=== PATIENT | male | born 1960 | race Caucasian/White ===

== ENCOUNTER 2025-01-24 09:59 | Emergency (ER) | payer OTHER, SELFPAY ==
--- NOTE | ~2025-01-24 | CT_ITS ---
EXAMINATION: CT SOFT TISSUE NECK WITH CONTRAST CLINICAL INFORMATION: Inability to swallow solids. Rule out abscess. COMPARISON: None available. TECHNIQUE: Following the intravenous administration of 100 mL of Omnipaque 350 intravenous contrast, helical imaging was performed in the axial plane with generation of coronal and sagittal reformatted images. This CT examination was performed using dose optimization techniques as appropriate, variously including the following: *Automated exposure control *Adjustment of mA and/or kV according to patient size (this includes techniques or standardized protocols for targeted exams where dose is matched to indication/reason for exam; i.e. extremities or head) *Use of iterative reconstruction technique DLP: 330 mGy/cm. FINDINGS: There is a heterogeneous lobulated mass centrally in the suprahyoid space above the epiglottis and involves most of the base of the tongue slightly more prominent towards left of midline. There is central necrosis within the lesion. It measures 4.5 cm in AP, 3.7 cm in craniocaudad and 3.8 cm wide on sagittal image 47/5 and axial image 70/2. A metastatic lobulated lymphadenopathy is seen, right neck level 3 space lateral to the carotid artery and jugular vein. There are small punctate calcifications within the lesion more along the lateral aspect of the lymph node. Additional subtle small lymph nodes are seen in bilateral submandibular and left carotid space. The second largest lymph node has posterior left carotid space and measures 1.2 x 8.1 cm on axial slice 89/2. Partially visualized intracranial brain parenchyma is unremarkable with no enhancing mass seen. The lateral ventricles are symmetrical but enlarged. No calvarial abnormality is seen. The paranasal sinuses and mastoid air cells are well-aerated moderate. Moderate deviation of left nasal septum is seen. Bilateral optic globes, optic nerves and the periorbital soft tissues are normal. Intracranial basilar artery and bilateral internal carotid arteries are widely patent. Bilateral parotid and submandibular glands are symmetric and normal. There is mild oropharyngeal airway narrowing secondary to projection of this tumor within the pharynx. The prevertebral space is normal. Visualized larynx, tracheal tracheal airway and thyroid lobes are normal except for a small lesion along the right posterior tracheal wall on axial image 112/2. The lung apices are clear except for emphysematous changes. CT/CT soft tissue neck w IV con IMPRESSION: Large primary heterogenous lobulated primary lesion at the base of the tongue with central necrosis extending across the midline more so on the left than right. There is oropharyngeal airway narrowing. There are metastatic lymph nodes in the right and the left neck with largest lymph node in the right neck level 3 space. It is easily amenable to ultrasound-guided biopsy. Soft tissue lesion in the right trachea on axial image 112/2. Recommend bronchoscopy Electronically signed by: Wiliam Lomas MD 01/24/2025 11:29 AM EDT RP
[2025-01-24 10:06] VITALS: BP 152/77; PULSE 86; RESP 18; TEMP 36.9; O2SAT 99; BMI 15.9
--- NOTE | 2025-01-24 10:09 | ED_ITS ---
HPI - General Adult General Chief complaint: General Medical Stated complaint: FB in Throat Time Seen by Provider: 01/24/25 10:09 Source: patient Mode of arrival: ambulatory Limitations: no limitations History of Present Illness ED Provider: Lauren Apodaca PA-C HPI narrative: Patient is a 64 year old assigned male at with a history of tobacco use presenting to the emergency department today with 2 weeks of inability to swallow solids. Patient states that he was seen at an urgent care and treated for thrush but he continues to have issues swallowing solids and has been drinking protein shakes. Patient states that he was told by the urgent care he could have something in his throat so he should come to the ER. Patient denies any night sweats or fevers. Patient states that he is losing weight cause he cannot tolerate solids. Patient denies any other complaints at this time. Related Data Allergies Allergy/AdvReac Type Severity Reaction Status Date / Time ibuprofen (From Motrin) Allergy Unknown Verified 01/24/25 10:09 Review of Systems 2 Constitutional: Constitutional: Reports as per HPI Eyes: Eyes: Reports as per HPI ENT: Reports as per HPI Cardiovascular: Cardiovascular: Reports as per HPI Respiratory: Respiratory: Reports as per HPI Gastrointestinal: Gastrointestinal: Reports as per HPI Genitourinary: Genitourinary: Reports as per HPI Musculoskeletal: Musculoskeletal: Reports as per HPI Integumentary/Breasts: Skin/Breast: Reports as per HPI Neurologic: Reports as per HPI Psychiatric: Psychiatric: Reports as per HPI Endocrine: Endocrine: Reports as per HPI Hematologic/Lymphatic: Hematologic/Lymphatic: Reports as per HPI Allergic/Immunologic: Allergic/Immunologic: Reports as per HPI [facility] Past Medical History Attestation statement: The following information was validated with the patient. Source: old records reviewed and nursing notes reviewed Social History Social History Advance Directives: No Advance Directives Information Provided: No Physical Exam ED Vital Signs: Vital Signs - 24 hr 01/24/25 10:06 Temperature 98.5 F Pulse Rate 86 Respiratory Rate 18 Blood Pressure 152/77 H Pulse Oximetry 99 Oxygen Delivery Method Room Air BMI result Body Mass Index 15.9 Const General: cooperative, no acute distress, alert and awake Nutritional Appearance: well nourished Orientation/consciousness: patient oriented x3 HENMT Head: Yes normal to inspection and Yes atraumatic Ears: hearing grossly normal bilaterally and external ears normal General nose exam: Normal external nose present, no nasal discharge noted and no epistaxis Face and sinus: Yes normal facial exam, No abrasion and No laceration Mouth: Normal oral and palatal mucosa present, no drooling and muffled voice Teeth and gingiva: poor dentition Eyes General: appearance normal, both eyes and all related structures Periorbital: periorbital findings normal Eyelids: Yes eyelids normal Conjunctivae: conjunctivae normal Pupils: Equal, round and reactive pupils present EOM: EOMs intact bilaterally Neck Neck: Yes normal visual inspection and Yes full ROM Resp Effort & Inspection: normal respiratory effort and able to speak in complete sentences Neuro General: patient oriented x3, moves all extremities and CN's II-XI intact bilaterally Cranial nerves: Yes Equal, round and reactive pupils present Cognition (Neuro): normal cognition Extrem General: Yes normal to inspection, Yes full ROM and Yes capillary refill normal Psych Appearance: grossly normal Mental Status: mental status grossly normal Affect: normal affect Attitude: cooperative Thought process: Normal thought process present Thought content: Normal thought content present Insight: Good insight present (Psych) Medications Administered Discontinued Medications Generic Name Dose Route Start Last Admin Trade Name Freq PRN Reason Stop Dose Admin Iohexol 100 ml 01/24/25 11:02 01/24/25 11:02 Iohexol 350 Mg/Ml 100 Ml Infus..Btl IV 01/24/25 11:03 80 ml ONCE ONE Administration Medical Decision Making Medical Decision Making [facility] Narrative: Patient is a 64 year old assigned male at with a history of tobacco use presenting to the emergency department today with 2 weeks of inability to swallow solids. Patient's physical exam was as noted in the physical exam portion of this note. Patient had poor dentition with several missing or blackened teeth. Patient's voice was somewhat muffled. Patient's blood work showed a WBC of 11.6 and CRP of 1.21. Patient's CT soft tissue neck showed a large primary heterogenous lobulated primary lesion at the base of the tongue with central necrosis extending across the midline more so on the left than right with oropharyngeal narrowing and metastatic lymph nodes in the right and left neck with the largest lymph node in the right neck level 3 space and a soft tissue lesion in the right trachea. I explained my physical exam findings as well as all test results to the patient. I answered all questions asked by the patient. Given patient is unable to tolerate solids and has a new - somewhat extensive cancer, the patient should be admitted to the hospital for possible G tube placement and further evaluation / intervention. I confirmed with our hospitalist team that they would not admit the patient here given our lack of ENT coverage. I called and spoke to [facility] who stated they were closed to transfers due to capacity. I called and spoke to Dr. Swenson, an ENT specialist at [facility], who recommended transfer to their facility for G-tube placement and possible surgical intervention + biopsy. I spoke to Dr. Duffy, a hospitalist at [facility] who agreed to transfer of this patient. Patient verbalized understanding and agreement with transfer to [facility]. Differential Diagnosis Differential Diagnoses: The differential diagnosis associated with the presentation includes Tongue mass Esophageal mass Esophageal stricture Admission/Observation Consideration of admission/observation: Escalation of care including admission/observation considered Patient transferred to [facility] as noted in the MDM Rationale portion of this note. Consult Healthcare Provider Management of the patient was discussed with: Hospitalist (declined admission as noted in the MDM Rationale portion of this note. ) and [employer] (spoke with [facility] hospitalist and ENT teams as noted in the MDM Rationale portion of this note. ) Lab Data [facility] Lab Attestation statement: I reviewed the patient's lab results. My interpretation of these results are in the MDM Rationale portion of this note. 01/24/25 10:22 01/24/25 10:22 Labs: Lab Results 01/24/25 01/24/25 Range/Units 10:20 10:22 WBC 11.6 H (4.8-10.8) X10*3/uL RBC 4.22 L (4.60-5.80) X10*6/uL Hgb 14.4 (14.0-18.0) g/dl Hct 42.4 (42.0-52.0) % MCV 100.5 H (80.0-98.0) fL MCH 34.1 H (27.0-33.0) pg MCHC 34.0 (31.0-36.0) g/dl RDW 12.0 (11.0-16.0) % Plt Count 303 (160-400) X10*3/uL MPV 8.5 L (9.4-12.4) fL Immature Gran % (Auto) 0.6 H (0.0-0.4) % Neut % (Auto) 82.5 H (45-73) % Lymph % (Auto) 7.0 L (20-40) % Bates % (Auto) 9.4 (2-11) % Eos % (Auto) 0.1 (0-4) % Baso % (Auto) 0.4 (0-2) % Lymph # (Auto) 0.8 L (1.2-4.9) X10*3/uL Bates # (Auto) 1.1 (0.1-1.2) X10*3/uL Eos # (Auto) 0.0 (0.0-0.4) X10*3/uL Baso # (Auto) 0.1 (0.0-0.2) X10*3/uL Abs Immat Gran (auto) 0.07 H (0.00-0.03) X10*3/uL Absolute Neuts (auto) 9.6 H (2.0-8.3) x10*3/uL Absolute Nucleated RBC 0.000 (0.0-0.012) X10*3/uL Nucleated RBC % (auto) 0.0 (0.0-0.2) /100WBC ESR 10 (0-15) MM/HR Sodium 138 (135-145) mmol/L Potassium 3.8 (3.3-5.1) mmol/L Chloride 100 (96-108) mmol/L Carbon Dioxide 28 (22-29) mmol/L Anion Gap 14 (12-20) BUN 13 (9-16) mg/dL Creatinine 0.59 (0.5-1.4) mg/dL Estim Creat Clear Calc 73.9 Estimated GFR > 60 Random Glucose 104 (60-115) mg/dL Calcium 9.5 (8.4-10.2) mg/dL Total Bilirubin 0.4 (0.0-1.0) mg/dL AST 25 (5-37) U/L ALT 16 (0-40) U/L Alkaline Phosphatase 111 (39-117) U/L C-Reactive Protein 1.21 H (< or = 0.50) mg/dL Total Protein 6.8 (6.5-8.0) g/dL Albumin 4.1 (3.5-5.0) g/dL S. pyogenes GrpA NYASIA Negative (Negative) Independent Interpretation I performed an independent interpretation of an: CT Scan Interpretation: My interpretation is in agreement with the radiologist's impression of this imaging study. L Report Number: [id number]: Total DLP = 330.00 mGy-cm Reason for Exam: r/o abscess, inability to swallow solids EXAMINATION: CT SOFT TISSUE NECK WITH CONTRAST CLINICAL INFORMATION: Inability to swallow solids. Rule out abscess. COMPARISON: None available. TECHNIQUE: Following the intravenous administration of 100 mL of Omnipaque 350 intravenous contrast, helical imaging was performed in the axial plane with generation of coronal and sagittal reformatted images. This CT examination was performed using dose optimization techniques as appropriate, variously including the following: *Automated exposure control *Adjustment of mA and/or kV according to patient size (this includes techniques or standardized protocols for targeted exams where dose is matched to indication/reason for exam; i.e. extremities or head) *Use of iterative reconstruction technique DLP: 330 mGy/cm. FINDINGS: There is a heterogeneous lobulated mass centrally in the suprahyoid space above the epiglottis and involves most of the base of the tongue slightly more prominent towards left of midline. There is central necrosis within the lesion. It measures 4.5 cm in AP, 3.7 cm in craniocaudad and 3.8 cm wide on sagittal image 47/5 and axial image 70/2. A metastatic lobulated lymphadenopathy is seen, right neck level 3 space lateral to the carotid artery and jugular vein. There are small punctate calcifications within the lesion more along the lateral aspect of the lymph node. Additional subtle small lymph nodes are seen in bilateral submandibular and left carotid space. The second largest lymph node has posterior left carotid space and measures 1.2 x 8.1 cm on axial slice 89/2. Partially visualized intracranial brain parenchyma is unremarkable with no enhancing mass seen. The lateral ventricles are symmetrical but enlarged. No calvarial abnormality is seen. The paranasal sinuses and mastoid air cells are well-aerated moderate. Moderate deviation of left nasal septum is seen. Bilateral optic globes, optic nerves and the periorbital soft tissues are normal. Intracranial basilar artery and bilateral internal carotid arteries are widely patent. Bilateral parotid and submandibular glands are symmetric and normal. There is mild oropharyngeal airway narrowing secondary to projection of this tumor within the pharynx. The prevertebral space is normal. Visualized larynx, tracheal tracheal airway and thyroid lobes are normal except for a small lesion along the right posterior tracheal wall on axial image 112/2. The lung apices are clear except for emphysematous changes. CT/CT soft tissue neck w IV con IMPRESSION: Large primary heterogenous lobulated primary lesion at the base of the tongue with central necrosis extending across the midline more so on the left than right. There is oropharyngeal airway narrowing. There are metastatic lymph nodes in the right and the left neck with largest lymph node in the right neck level 3 space. It is easily amenable to ultrasound- guided biopsy. Soft tissue lesion in the right trachea on axial image 112/2. Recommend bronchoscopy Electronically signed by: Wiliam Lomas MD 01/24/2025 11:29 AM EDT RP Dictated By: Wiliam Lomas MD Signed By: Electronically signed by Wiliam Lomas MD 01/24/25 1129 Radiology Impression Discussion of test interpretation with radiology: I have reviewed the radiologist's reading. Critical Care Time Critical Care Time Critical Care Time: Yes Total Critical Care Time: 59 Attestation: I spent 59 minutes of Critical Care Time with this patient. This does not include time spent on separately reported billable procedures. 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 Duffy + Leela accepting for ENT intervention. Print Language: Vietnamese
[2025-01-24 10:30] LABS: MANUAL DIFF FLAG NO
[2025-01-24 10:31] LABS: Hematocrit 42.4 % (42.0-52.0); Hemoglobin 14.4 g/dl (14.0-18.0); Imm Gran Abs Auto 0.07 X10*3/uL (0.00-0.03); Imm Gran Pct Auto 0.6 % (0.0-0.4); Lymphocytes Absolute Auto 0.8 X10*3/uL (1.2-4.9); Mean Corpuscular HGB Conc 34.0 g/dl (31.0-36.0); Mean Corpuscular Hemoglobin 34.1 pg (27.0-33.0); Mean Corpuscular Volume 100.5 fL (80.0-98.0); NRBC Abs Auto 0.000 X10*3/uL (0.0-0.012); NRBC Pct Auto 0.0 /100WBC (0.0-0.2); Platelet Count 303 X10*3/uL (160-400); Red Blood Count 4.22 X10*6/uL (4.60-5.80); White Blood Count 11.6 X10*3/uL (4.8-10.8)
[2025-01-24 10:40] LABS: IDNOW Serial# 6674DD1D; Strep A Nucleic Acid Negative (Negative)
[2025-01-24 10:44] LABS: Alanine Aminotransferase 16 U/L (0-40); Albumin Level 4.1 g/dL (3.5-5.0); Alkaline Phosphatase 111 U/L (39-117); Anion Gap 14 (12-20); Aspartate Amino Transferase 25 U/L (5-37); Blood Urea Nitrogen 13 mg/dL (9-16); Calcium 9.5 mg/dL (8.4-10.2); Carbon Dioxide 28 mmol/L (22-29); Chloride 100 mmol/L (96-108); Creatinine Clr Calc Pharmacy 73.9; Estimated Glomerular Filt Rate > 60; Potassium 3.8 mmol/L (3.3-5.1); Sodium 138 mmol/L (135-145); Total Protein 6.8 g/dL (6.5-8.0)
[2025-01-24] MEDS: iohexoL 350 MG/ML 100 ML INFUS..BTL IV (11:02)
[2025-01-24 11:14] LABS: Erythrocyte Sedimentation Rate 10 MM/HR (0-15)
--- OUTSIDE RECORDS SUMMARY | 2025-01-24 11:41 | XMS_ITS | Patient Health Record ---
Author Organization [facility] Elaine maryanne Vern Address [address] [place] [address] Care Team Providers Care Mobile Designer Name Role Phone Antoni Braun MD Primary Care Provider Unavailab Basim Diaz Unavailable [phone] Reason For Referral No Information Medications Medication SIG (Take, Route, Frequency, Duration) Notes Start Date End Date Status rOPINIRole HCl 5 MG 1 tablet Orally Once a day Active oxyCODONE HCl 5 MG 1 capsule as needed Orally every 6 hrs 06/20/2017 Active amLODIPine Besylate 5 MG Oral; Duration: 30 Active Social History Tobacco Use: Social History Observation Description Date Details (start date - stop date) Current Smoker NA - NA Tobacco Use/Smoking Question Answer Notes Are you a: current smoker When did you start smoking? 2002 Alcohol Screen Question Answer Notes Did you have a drink containing alcohol in the p ast year? No Points 0 Interpretation Negative Tobacco use other than smoking: Question Answer Notes Are you an other tobacco user? No Problems Problem Type SNOMED Code ICD Code Onset Dates Problem Status W/U Status Risk Notes Problem Plantar wart (59178833) Plantar wart (B07.0) Active confirmed Problem Localized, primary osteoarthritis of the ankle and/or foot (488086804) Primary osteoarthrit is, right ankle and foot (M19.071) Active confirmed Plan Of Treatment No Information Insurance Providers Payer Name Payer Address Payer Phone Subscriber Number Group Number Insured Name Patient Relationship to Insured Coverage Start Date Coverage End Date [facility] [id number] [place] [phone] [id number] Cornelius Manjarrez Self - patient is the insured Medical (General) History Medical History History ICD Code transfusions mumps measles joint implants/screws chicken pox Broken bones Diverticulosis High blood pressure Surgical History Surgery Date(Month/Year) shoulder surgery 1977 Diverticulitis 2011 Hospitalization History Reason Date(Month/Year) diverticulitis X2 2011 reversal diverticulitis 2011
[2025-01-24 12:34] VITALS: BP 155/74; PULSE 73; RESP 16; TEMP 36.6; O2SAT 99
[2025-01-24 12:37] VITALS: BP 155/74; PULSE 73; RESP 16; TEMP 36.6; O2SAT 99
--- NOTE | 2025-01-30 07:03 | PC.NURSE ---
fluids infusing [facility] came patient getting transferred [facility] asked for me to stop fluids.
== END 2025-01-24 13:46 | disposition short-term general hospital (02) ==
PROVIDERS: Physician Assistant Medical; Emergency Provider Emergency Medicine; PCP Family Medicine
DX: C02.9 Malignant neoplasm of tongue, unspecified (principal); R13.10 Dysphagia, unspecified; M54.2 Cervicalgia; Z79.899 Other long term (current) drug therapy
CPT/HCPCS: 36415; 70491; 80053; 85025; 85652; 86140; 87651; 99285; Q9967

== ENCOUNTER → 2025-01-24 10:15 | Outpatient (BNV) | payer OTHER, SELFPAY | PROVIDERS: PCP Family Medicine; Visit Provider Radiology Diagnostic Radiology | DX: K14.8 Other diseases of tongue (principal); R22.0 Localized swelling, mass and lump, head | CPT/HCPCS: 70491 ==

== ENCOUNTER 2025-02-21 13:33 | Emergency (ER) | payer OTHER, SELFPAY ==
[2025-02-21 13:47] VITALS: BP 119/77; PULSE 85; RESP 16; TEMP 37; O2SAT 98; BMI 23.2
--- NOTE | 2025-02-21 13:48 | ED_ITS ---
HPI - General Adult General Chief complaint: General Medical Stated complaint: feeding tube fell out Time Seen by Provider: 02/21/25 16:03 Source: patient, family, RN notes reviewed and old records reviewed Mode of arrival: ambulatory Limitations: no limitations History of Present Illness ED Provider: Lesley HAIRSTON narrative: Patient is a 64 year old male with a past medical history throat cancer presenting today after his G-Tube fell out this morning. Pt states it was inserted at [facility] a couple weeks ago, but it has felt loose. This morning the pt woke up and it was out with the balloon deflated. Incision is closed with mild erythema surrounding. Pt denies any issues with the tube yesterday, tugging on the tube last night, or sleeping in a position to affect the tube. Pt denies fevers, itching, or abdominal pain. Endorses being hungry, however, can drink Ensures and was able to take his medications by mouth. Related Data Allergies Allergy/AdvReac Type Severity Reaction Status Date / Time ibuprofen (From Motrin) Allergy Unknown Verified 02/21/25 13:52 Review of Systems Constitutional: Constitutional: Reports as per HPI, Denies chills, Denies fatigue, Denies fever(s) and Denies headache(s) ENT: Denies headache(s) Cardiovascular: Cardiovascular: Denies chest pain and Denies dyspnea Respiratory: Respiratory: Denies cough and Denies dyspnea Gastrointestinal: Gastrointestinal: Denies abdominal pain, Denies constipation and Denies vomiting Genitourinary: Genitourinary: Denies difficulty urinating and Denies dysuria Neurologic: Denies headache(s) and Denies focal weakness Endocrine: Endocrine: Denies fatigue [facility] Social History Social History Advance Directives: No Advance Directives Information Provided: No Physical Exam ED Vital Signs: Vital Signs - 24 hr 02/21/25 13:47 Temperature 98.6 F Pulse Rate 85 Respiratory Rate 16 Blood Pressure 119/77 Pulse Oximetry 98 Oxygen Delivery Method Room Air BMI result Body Mass Index 23.2 Const General: healthy appearing, comfortable, no acute distress, alert and awake Orientation/consciousness: patient oriented x3 HENMT Head: Yes normocephalic and Yes atraumatic Eyes Eyelids: Yes eyelids normal Conjunctivae: conjunctivae normal Sclerae: sclerae normal Corneas: corneas normal Neck Neck: Yes full ROM Resp Effort & Inspection: normal respiratory effort, able to speak in complete sentences, no audible wheezes and not labored GI Other: The patient's orifice from previous due to placement has completely closed Inspection: No distended Palpation (GI): Soft to palpation, not firm, nontender, no guarding and not rigid Skin General skin exam: elasticity normal Rashes: rashes noted (surrounding the previous site of tube.) Neuro General: patient oriented x3 Cranial nerves: Yes Bilaterally intact EOM present Cognition (Neuro): normal cognition Extrem Other: Moving all extremities well without any obvious deformities Course Course Course Narrative: Rapid medical examination performed in triage by Lauren Apodaca PA-C: Patient is a 64 year old assigned male at presenting to the emergency department after his G tube fell out. Patient states his G tube fell out at some point and he woke up with it out. Patient states that it was in and open last night. Detailed physical exam and review of systems are deferred to the grill attendant. Patient placed back in the waiting room pending room availability. Medical Decision Making Medical Decision Making MDM Narrative: 64-year-old male presents for evaluation of G-tube dislodgement. This happened sometime last night into this morning. Unfortunately the orifice from the G- tube is completely closed off. I attempted to discuss with interventional radiology but unfortunately they are all home for the day. I spoke to her general surgeon, Dr. Yates and sent him a picture of the patient's G-tube location. He states that there are laparoscopic markers in the area and we unfortunately do not provide that procedure at this hospital. I was able to discuss with Dr. Solis, oncology fellow at [facility] who feels the patient can safely be discharged as he is able to tolerate ensure and his medications. She sent a message to the patient's radiation oncologist and medical oncologist to help facilitate getting a new G-tube placed. The patient has no complaints, vital signs are within normal limits. Differential Diagnosis Differential Diagnoses: The differential diagnosis associated with the prese ntation includes G-tube dislodgement Esophageal cancer Tongue cancer Weakness Discharge Plan Discharge Clinical Impression: Gastrostomy tube dysfunction Patient Disposition: Home, Self-Care Additional Instructions: I discussed with the oncology office, Dr. Solis she was able to send a message to both Dr. Chino and Dr Lara. You should receive a phone call on Monday with instructions on how to proceed about getting a new G-tube. In the meantime, return to the hospital if you develop severe weakness, nausea, vomiting or unable to tolerate any nutrition by mouth Print Language: [place]
--- OUTSIDE RECORDS SUMMARY | 2025-02-21 16:19 | XMS_ITS | Continuity of Care Document ---
Author Organization [place] - [facility], [facility] Address [address] [place] [address] Care Team Providers Care Agronomy Manager Name Role Phone STEPHEN SCHWARTZ Primary Care Provider Assessment Encounter Date Assessment Date Assessment LastModified by Organization Details LastModified Time 02/18/2025 02/18/2025 Follow up with referring provider.Informed him to follow his doctors recommendations for follow up hearing test but to also keep an eye on his hearing. If he notes any continuous tinnitus (ringing/buzzing in the ear) or a change in hearing he should call and get another hearing test as soon as possible. He received a copy of his hearing test today. [email or web address] Not available 02/18/2025 14:55:52 Plan of Treatment Reminders Order Date Submit Date Provider Last Modified By Organization Details Last Modified Time Details Appointments Urgent Visit New 15 2024 09:15A M JARRETT YIN MD Not available Not available Not available Lab None recorded . Referral None recorded . Procedures None recorded . Surgeries None recorded . Imaging None recorded . Medication Orders None recorded . Patient TargetsNo targets recorded. Patient InstructionsNo instructions recorded. Reason for Referral None Reported. Results Created Date Observation Date Name Description Value Unit Range Abnormal Flag Note LastModifiedBy Organization Detail LastModifiedTime 01/25/2001/24/2025 consu lts No observ ation record ed. [facility] U/S Dept [address] [facility] [place], [place], [address], 02/07/2025 17:05:00 01/25/2001/24/2025 consu lts No observ ation record ed. [facility]/S Dept [address] [place], [address], 02/07/2025 17:05:00 01/25/2001/24/2025 consu lts No observ ation record ed. [facility] [address] [place], [address], 02/07/2025 17:05:00 01/25/2001/24/2025 H&P No observ ation record ed. [facility] [address] [place], [address], 02/07/2025 11:29:49 01/27/2001/24/2025 consu lts No observ ation record ed. [facility] Dept [address] [place], [address], 02/07/2025 11:29:23 01/28/2001/24/2025 consu lts No observ ation record ed. [facility] [address] [place], [address], 02/07/2025 11:28:10 01/28/2001/24/2025 consu lts No observ ation record ed. [facility]/S Dept [address] [place], [address], 02/07/2025 11:27:19 01/29/2001/24/2025 consu lts No observ ation record ed. [facility]/S Dept [address] [place], [address], 02/07/2025 11:27:02 01/31/2001/24/2025 disch arge summa ry No observ ation record ed. [email or web address] [facility] U/S Dept [address] [place], [address], 02/11/2025 14:47:32 02/19/20 audio gram No observ ation record ed. BAR[facility] Not Available 2024 17:11:37 Result Notes None recorded. Problems Name Problem SNOMED Code Status Onset Date Resolution Date Notes Provider Name and Address Organization Details Recorded Time Sensorineural hearing loss of bilateral ears [id number] Active 2024 DENISE MONCADA, [facility] [address] [facility],[address], [address], [facility] 14:52:29 Problem Notes None recorded. Procedures Surgical History Date Name Laterality Status Provider Name and Address Organization Details Recorded Time 02/19/20 Comp Audio with Tymps & Reflexes - 95965 & 35064 completed DENISE MONCADA, [facility] [address] [facility],[address], [address], [facility] 02/18/2025 14:51:52 02/19/20 OAE distortion product, [facility] - [id number] completed DENISECHELLE MONCADA, [address], [address], [facility] 02/18/2025 14:42:22 Imaging Results None recorded. Procedure Notes None recorded. Medical Equipment None Reported. Medications Name Sig Start Date Stop Date Status Note LastModified by Organization Details LastModified Time nystatin 100,000 unit/mL oral suspension TAKE 4 ML (ORAL) 3 TIMES PER DAY FOR 7 DAYS active Not Available Not Available No t Available ropinirole 0.5 mg tablet TAKE 1 TABLET BY MOUTH 4 TIMES A DAY active Not Available Not Available No t Available albuterol sulfate HFA 90 mcg/actuatio n aerosol inhaler TAKE 2 PUFFS BY MOUTH EVERY 4 HOURS NEEDED FOR WHEEZE active Not Available Not Available No t Available amoxicillin 875 mg-potassium clavulanate 125 mg tablet TAKE 1 TABLET BY MOUTH EVERY 12 HOURS FOR 7 DAYS 02/07 completed Not Available Not Available Not Available oxycodone 5 mg tablet TAKE 1 TABLET BY MOUTH 4 TIMES DAILY FOR 21 DAYS NEEDED FOR PAIN active Not Available Not Available No t Available amlodipine 10 mg-benazepri l 20 mg capsule TAKE 1 CAPSULE BY MOUTH EVERY DAY active Not Available Not Available No t Available Vitals None Recorded Social History None recorded. Functional Status None recorded. Mental Status None recorded. Family History Nothing Reported. Medical History No medical history recorded. Past Encounters Encounter ID Performer Location Encounter Start Date Encounter Closed Date Diagnosis/Indication Diagnosis SNOMED-CT Code Diagnosis ICD10 Code Diagnosis IMO Codes Diagnosis Note [id number] DAYRON HERRERA [facility] [address] [place] [address] 02/18/2025 14:15:54 02/18/2025 15:00:38 Sensorineural hearing loss of bilateral ears 886352824 H90.3 [id number] Audiologic al evaluation results: Normal auditory thresholds with a mild starting at 4khz in the left and onyl at 8kHz in the right with excellent speech discrimina tion, AU. Tympanomet ry: Right Ear:Type A Left Ear:Type AIpsilater al Reflexes:R ight:Prese ntLeft:Pre sent DPOAE's 1.5kHz-12k Hz:Right:A bsent with the exception of present responses at 3k-6kHz.Le ft:Absent across frequencie s. Health Concerns Section Related Observation LastModified by Organization Detai ls LastModified Time None Recorded Concern Status LastModified by Organization Details LastModified Time None Recorded Payers Encounter Date Sequence Insurance Name Policy Number Policy Valladares Covered Member ID Valladares Member ID Guarantor Name 02/18/[address] [place] [address] [id number] Cornelius Manjarrez [id number] Cornelius Manjarrez Notes Date Note Type Note Provider Name and Address Organization Details Recorded Time 02/18/2025 text/html Audiological Evaluation HPIReported by PatientHearing LossFor hearing loss perceived, patient reportsnone (no loss of audibility). Baseline for ototoxic monitoring before treatment DAYRON HERRERA [address] [place] [address],[place] [address], [place], [address], [facility] - [facility] 02/18/2025 14:56:09
--- OUTSIDE RECORDS SUMMARY | 2025-02-21 16:19 | XMS_ITS | Clinical Summary ---
Author Organization [facility] Address [address] [place] [address] Phone Care Team Providers Care Clothes Presser Name Role Phone Cj Torres MD Primary Care Provider [phone] Allergies No known active allergies Medications albuterol HFA (PROVENTIL HFA;VENTOLIN HFA) 108 (90 Base) MCG/ACT inhaler Inhale 2 puffs by mouth every 4 (four) hours if needed for wheezing or shortness of breath. Active oxyCODONE (OXY-IR) 5 mg immediate release capsule Take 1 capsule (5 mg total) by mouth every 6 (six) hours if needed for severe pain. Max Daily Amount: 20 mg Active nystatin (MYCOSTATIN) 100,000 unit/mL suspension Swish and swallow 4 mL 4 (four) times a day. Active rOPINIRole (REQUIP) 0.5 mg tablet Take 1 tablet (0.5 mg total) by mouth 4 (four) times a day if needed (restless legs). Active amLODIPine-van zepril (LOTREL) 10-20 mg per capsuleIndicati ons:hypertensio n Take 1 capsule by mouth 1 (one) time each day. 01/31/20 25 Discontinu ed(Stop Taking at Discharge) Active Problems Problem Noted Date Diagnosed Date Mass of tongue 01/24/2025 Encounters Date Type Department Care Team Description 01/24/2025 2:16 PM EDT - 01/30/2025 11:33 AM EST Hospital Encounter [facility] [address] [place] [address] Hyacinth Duffy MD Japaridze, Anna, MD Rasul, Yar M, MD Mass of tongue (Primary Dx); Pain Discharge Disposition: Home-Health Care Svc from Last 3 Months Medical History Medical History Date Comments Arthritis Hypertension Chronic pain Restless legs Alcohol use Social History Tobacco Use Types Packs/Day Years Used Date Smoking Tobacco: Every Day Cigarettes Smokeless Tobacco: Current Tobacco Cessation:Ready to Q uit: Not Asked; Counseling Given: Not Answered Interpersonal Safety Answer Date Record ed Physical Abuse Unrecognized value 01/24/2025 Verbal Abuse Unrecognized value 01/24/2025 Sex and Gender Information Value Date Recorded Sex Assigned at Male 01/27/2025 10:09 AM EST Legal Sex Male 12:24 PM EDT Gender Identity Male 01/27/2025 10:09 AM EST Sexual Orientation Straight 01/27/2025 10 :09 AM EST Obstetrics History Last Filed Vital Signs Vital Sign Reading Time Taken Comments Blood Pressure 118/60 01/30/2025 7:59 AM EST Pulse 77 01/30/2025 7:59 AM EST Temperature 36.9 C (98.5 F) 01/30/2025 7:59 AM EST Respiratory Rate 17 01/30/2025 7:59 AM EST Oxygen Saturation 98% 01/30/2025 7:59 AM EST Inhaled Oxygen Concentration - - Weight 40.6 kg (89 lb 9.6 oz) 01/24/2025 5:00 PM EDT Height 160.2 cm (5' 3.07 ) 01/24/2025 2:57 PM ED T Body Mass Index 15.84 01/24/2025 2:57 PM EDT Plan of Treatment Health Maintenance Due Date Last Done Comments Colorectal Cancer Screening: Colonoscopy 1960 Pneumococcal Vaccine: 50+ Years (2 of 2 - PCV) 06/01/2004 06/02/2003 Depression Screening 03/27/2024 COVID-19 Vaccine ( season) 2024 12/08/2023, 12/20/2022, 07/15/2021, Additional history exists Influenza Vaccine (#1) 2024 , 12/20/2022, 01/07/2022, Additional history exists Cholesterol Screening (Lipid Panel) 01/24/2025 HIV Screening 01/24/2025 Hepatitis C Screening 01/24/2025 Social Influencers of Health Screening 01/24/2025 Hypertension/CHF/CAD Annual BMP Blood Test 01/30/2026 01/30/2025, 01/29/2025, 01/28/2025, Additional history exists DTaP,Tdap,and Td Vaccines (3 - Td or Tdap) 07/20/2031 07/19/2021, 06/01/2003 RSV Immunization Adult Patients (1 - 1-dose 75+ series) 2036 Zoster Vaccines Completed 12/20/2022, 01/17/2021 HIB Vaccines Aged Out No longer eligi ble based on patient's age to complete this topic HPV Vaccines Aged Out No longer eligi ble based on patient's age to complete this topic Hepatitis A Vaccines Aged Out No long er eligible based on patient's age to complete this topic Hepatitis B Vaccines Aged Out No long er eligible based on patient's age to complete this topic IPV Vaccines Aged Out No longer eligi ble based on patient's age to complete this topic MMR Vaccines Aged Out No longer eligi ble based on patient's age to complete this topic Meningococcal ACWY Vaccine Aged Out N o longer eligible based on patient's age to complete this topic Meningococcal B Vaccine Aged Out No l onger eligible based on patient's age to complete this topic RSV Immunization Patients Under 20 months Aged Out No longer eligible based on patient's age to complete this topic Varicella Vaccines Aged Out No longer eligible based on patient's age to complete this topic Procedures Procedure Name Priority Date/Time Associated Diagnosis Comments CBC WITH AUTO DIFFERENTIAL Timed 01/30/2025 6:25 AM EST BASIC METABOLIC PANEL Timed 01/30/2025 6:25 AM EST CBC AND DIFFERENTIAL Timed 01/30/2025 6:25 AM EST MAGNESIUM Routine 01/30/2025 6:25 AM EST CBC WITH AUTO DIFFERENTIAL Timed 01/29/2025 6:18 AM EST PHOSPHORUS Routine 01/29/2025 6:18 AM EST BASIC METABOLIC PANEL Timed 01/29/2025 6:18 AM EST CBC AND DIFFERENTIAL Timed 01/29/2025 6:18 AM EST MAGNESIUM Routine 01/29/2025 6:18 AM EST POCT GLUCOSE BLOOD Routine 01/28/2025 6: 37 AM EST CBC WITH AUTO DIFFERENTIAL Timed 01/28/2025 6:26 AM EST CBC AND DIFFERENTIAL Timed 01/28/2025 6:26 AM EST BASIC METABOLIC PANEL Routine 01/28/2025 6:25 AM EST MAGNESIUM Routine 01/28/2025 6:25 AM EST POCT GLUCOSE BLOOD Routine 01/27/2025 11 :57 PM EST POCT GLUCOSE BLOOD Routine 01/27/2025 6: 16 PM EST US BX NECK/THORAX SOFT TISSUE Routine 01/27/2025 4:45 PM EST TISSUE EXAM Routine 01/27/2025 4:20 PM EST Pain FINE NEEDLE ASPIRATION Routine 01/27/2025 4:17 PM EST Pain IR INSERT GASTRO TUBE PERC W FLUORO Routine 01/27/2025 3:57 PM EST POCT GLUCOSE BLOOD Routine 01/27/2025 11 :33 AM EST POCT GLUCOSE BLOOD Routine 01/27/2025 8: 07 AM EST PHOSPHORUS Routine 01/27/2025 6:49 AM EST MAGNESIUM Routine 01/27/2025 6:49 AM EST BASIC METABOLIC PANEL Routine 01/27/2025 6:49 AM EST LAVENDER - EDTA Routine 01/27/2025 6:47 AM EST EXTRA TUBES Routine 01/27/2025 6:47 AM EST POCT GLUCOSE BLOOD Routine 01/27/2025 5: 43 AM EST POCT GLUCOSE BLOOD Routine 01/26/2025 8: 19 PM EST CBC WITH AUTO DIFFERENTIAL Routine 01/26/2025 6:21 AM EST CBC AND DIFFERENTIAL Routine 01/26/2025 6:21 AM EST BASIC METABOLIC PANEL Routine 01/26/2025 6:21 AM EST POCT GLUCOSE BLOOD Routine 01/26/2025 2: 24 AM EST POCT GLUCOSE BLOOD Routine 01/25/2025 8: 14 PM EDT PROTHROMBIN TIME WITH INR Routine 01/25/2025 6:22 AM EDT COMPLETE BLOOD COUNT Routine 01/25/2025 6:22 AM EDT COMPREHENSIVE METABOLIC PANEL Routine 01/25/2025 6:22 AM EDT POCT GLUCOSE BLOOD Routine 01/25/2025 12 :[address] CHEST/ABDOMEN/PELVIS W CONTRAST STAT 01/24/2025 7:58 PM EDT MAGNESIUM Add-On 01/24/2025 5:21 PM EDT ETHANOL Add-On 01/24/2025 5:21 PM EDT COMPREHENSIVE METABOLIC PANEL STAT Add-on 01/24/2025 5:21 PM EDT SST - GOLD Routine 01/24/2025 5:21 PM EDT LT BLUE - NA CITRATE Routine 01/24/2025 5:21 PM EDT EXTRA TUBES Routine 01/24/2025 5:21 PM EDT CBC WITH AUTO DIFFERENTIAL STAT 01/24/2025 5:21 PM EDT CBC AND DIFFERENTIAL STAT 01/24/2025 5:21 PM EDT from Last 3 Months Results * (ABNORMAL) CBC auto differential (01/30/2025 6:25 AM EST) Only the most recent of5 resultswithin the time period is included. WBC 12.3(H) 4.8 - 10.8 K/mcL LAB HEMETOLOGY METHOD 01/30/2025 6:58 AM [facility] RBC 4.10(L) 4.50 - 5.50 M/mcL LAB HEMETOLOGY METHOD 01/30/2025 6:58 AM [facility] Hemoglobin 13.7 13.5 - 17.5 g/dL LAB HEMETOLOGY METHOD 01/30/2025 6:58 AM [facility] Hematocrit 41.3(L) 42.0 - 54.0 % LAB HEMETOLOGY METHOD 01/30/2025 6:58 AM [facility] MCV 101.2(H) 79.0 - 98.0 FL LAB HEMETOLOGY METHOD 01/30/2025 6:58 AM [facility] MCH 33.6(H) 27.0 - 32.0 pcg LAB HEMETOLOGY METHOD 01/30/2025 6:58 AM [facility] MCHC 33.2 32.0 - 37.0 g/dL LAB HEMETOLOGY METHOD 01/30/2025 6:58 AM [facility] RDW 12.5 11.0 - 15.0 % LAB HEMETOLOGY METHOD 01/30/2025 6:58 AM [facility] Platelets 390 130 - 400 K/mcL LAB HEMETOLOGY METHOD 01/30/2025 6:58 AM [facility] MPV 8.9 7.0 - 11.0 FL LAB HEMETOLOGY METHOD 01/30/2025 6:58 AM [facility] NRBC 0.0 <1.0 % LAB HEMETOLOGY METHOD 01/30/2025 6:58 AM [facility] NRBC Absolute 0.00 <0.10 K/mcL LAB HEMETOLOGY METHOD 01/30/2025 6:58 AM [facility] Neutrophils Relative 85.4 % LAB HEMETOLOGY METHOD 01/30/2025 6:58 AM [facility] Lymphocytes Relative 5.9 % LAB HEMETOLOGY METHOD 01/30/2025 6:58 AM [facility] Monocytes Relative 7.5 % LAB HEMETOLOGY METHOD 01/30/2025 6:58 AM [facility] Eosinophils Relative 0.4 % LAB HEMETOLOGY METHOD 01/30/2025 6:58 AM [facility] Basophils Relative 0.3 % LAB HEMETOLOGY METHOD 01/30/2025 6:58 AM [facility] Immature Granulocytes Relative 0.5 % LAB HEMETOLOGY METHOD 01/30/2025 6:58 AM [facility] Neutrophils Absolute 10.52(H) 1.50 - 7.00 K/mcL LAB HEMETOLOGY METHOD 01/30/2025 6:58 AM [facility] Lymphocytes Absolute 0.73(L) 1.00 - 5.00 K/mcL LAB HEMETOLOGY METHOD 01/30/2025 6:58 AM EST [facility] Monocytes Absolute 0.93 0.20 - 1.00 K/[facility] LAB HEMETOLOGY METHOD 01/30/2025 6:58 AM EST [facility] Eosinophils Absolute 0.05 0.00 - 0.50 K/[facility] LAB HEMETOLOGY METHOD 01/30/2025 6:58 AM EST [facility] Basophils Absolute 0.04 0.00 - 0.20 K/[facility] LAB HEMETOLOGY METHOD 01/30/2025 6:58 AM EST [facility] Immature Granulocytes Absolute 0.06(H) 0.00 - 0.03 K/[facility] LAB HEMETOLOGY METHOD 01/30/2025 6:58 AM [facility] Blood Venous blood specimen / Unknown Venipuncture / Unknown 01/30/2025 6:25 AM EST 01/30/2025 6:42 AM EST us Francisco Milan MD LAB BLOOD ORDERABLES Final Resul t Performing Organization Address City/[facility]/ZIP Co de Phone Number [facility] [address] [place] [address], * Magnesium (01/30/2025 6:25 AM EST) Only the most recent of5 resultswithin the time period is included. Magnesium 2.2 1.9 - 2.6 mg/dL LAB CHEMISTRY METHOD 01/30/2025 7:33 AM [facility] Blood Venous blood specimen / Unknown Venipuncture / Unknown 01/30/2025 6:25 AM EST 01/30/2025 6:42 AM EST us Mica Lyons MD LAB BLOOD ORDERABLES Final Res ult Performing Organization Address City/[facility]/ZIP Co de Phone Number [facility] [address] [place] [address], * (ABNORMAL) Basic metabolic panel (01/30/2025 6:25 AM EST) Only the most recent of5 resultswithin the time period is included. Sodium 135 133 - 145 mmol/L LAB CHEMISTRY METHOD 01/30/2025 7:33 AM [facility] Potassium 4.0 3.5 - 5.5 mmol/L LAB CHEMISTRY METHOD 01/30/2025 7:33 AM [facility] Chloride 98 96 - 110 mmol/L LAB CHEMISTRY METHOD 01/30/2025 7:33 AM [facility] CO2 33(H) 21 - 32 mmol/L LAB CHEMISTRY METHOD 01/30/2025 7:33 AM [facility] Anion Gap 4 3 - 11 LAB CHEMISTRY METHOD 01/30/2025 7:33 AM [facility] Glucose 179(H) 70 - 100 mg/dL LAB CHEMISTRY METHOD 01/30/2025 7:33 AM [facility] BUN 16 5 - 25 mg/dL LAB CHEMISTRY METHOD 01/30/2025 7:33 AM [facility] Creatinine 0.49(L) 0.70 - 1.30 mg/dL LAB CHEMISTRY METHOD 01/30/2025 7:33 AM [facility] eGFR 115 >=60 mL/min/1. 73m2 LAB CHEMISTRY METHOD 01/30/2025 7:33 AM [facility] Comment:Calculation based on the Chronic Kidney Disease Epidemiology Collaboration (CKD-EPI) equation refit without adjustment for race. BUN/Creatinine Ratio 32.7 LAB CHEMISTRY METHOD 01/30/2025 7:33 AM [facility] Calcium 9.5 8.5 - 10.5 mg/dL LAB CHEMISTRY METHOD 01/30/2025 7:33 AM [facility] Blood Venous blood specimen / Unknown Venipuncture / Unknown 01/30/2025 6:25 AM EST 01/30/2025 6:42 AM EST us Francisco Milan MD LAB BLOOD ORDERABLES Final Resul t Performing Organization Address City/[facility]/ZIP Co de Phone Number [facility] [address] [place] [address], [place] [phone] * Phosphorus (01/29/2025 6:18 AM EST) Only the most recent of2 resultswithin the time period is included. Phosphorus 3.1 2.5 - 4.5 mg/dL LAB CHEMISTRY METHOD 01/29/2025 7:39 AM EST [facility] Blood Venous blood specimen / Unknown Venipuncture / Unknown 01/29/2025 6:18 AM EST 01/29/2025 6:37 AM EST us Francisco Milan MD LAB BLOOD ORDERABLES Final Resul t Performing Organization Address [facility] Co de Phone Number [facility] [address] [place] [address], [place] [phone] * POCT Glucose, blood (01/28/2025 6:37 AM EST) Only the most recent of10 resultswithin the time period is included. Glucose POCT 100 70 - 100 mg/dL 01/28/2025 6:39 AM EST [facility] Blood Capillary blood specimen / Unknown 01/28/2025 6:37 AM EST 01/28/2025 6:40 AM EST us Francisco Milan MD LAB POINT OF CARE TE ST DOCKED DEVICE UNSOLICITED RESULTS Final Result Performing Organization Address [facility] Co de Phone Number [facility] [address] [place] [address], [place] [phone] * US Bx Neck/Thorax Soft Tissue (01/27/2025 4:45 PM EST) Anatomical Region Laterality Modality Neck, Chest Ultrasound 01/31/2025 10:1 5 AM EST Impressions 01/31/2025 10:58 AM EST Ultrasound-guided biopsy of right cervical lymphadenopathy. -------- FINAL REPORT -------- Dictated By: Ingrid Barrett Dictated Date: 01/31/2025 10:15 ET Assigned Physician: Ingrid Barrett Reviewed and Electronically Signed By: Ingrid Barrett Signed Date: 01/31/2025 10:58 ET Workstation ID: [id number] Transcribed By: Self Edit Transcribed Date: 01/31/2025 10:15 ET Narrative 01/31/2025 10:58 AM EST INDICATION: Cervical lymphadenopathy PROCEDURE: Ultrasound-guided biopsy of right cervical lymphadenopathy prior relevant studies: none MEDICATIONS: Local anesthesia: 1% buffered lidocaine administered subcutaneously and up to the biopsy target site. Sedation: none TECHNIQUE/FINDINGS: Prior imaging reviewed and procedure discussed with the patient. Written informed consent obtained. Multiple images obtained of the right neck demonstrating cervical lymphadenopathy with heterogeneous 3.4 cm x 3.1 cm x 1.9 cm mass localized for biopsy. Appropriate region of the skin was localized, draped and then prepped sterilely. Under real-time ultrasound guidance both fine-needle and core biopsy performed. Fine-needle sampling performed followed by multiple 18-gauge core biopsy samples. Bandage applied over the needle entry site. Specimens: Fine-needle samples placed in CytoLyt after creation of histological slides. Core biopsy samples placed into formalin. Flow cytometry sample obtained with a heparinized needle. Procedure Note Ingrid Barrett MD - 01/31/2025 INDICATION: Cervical lymphadenopathy PROCEDURE: Ultrasound-guided biopsy of right cervical lymphadenopathy prior relevant studies: none MEDICATIONS: Local anesthesia: 1% buffered lidocaine administered subcutaneously and upto the biopsy target site. Sedation: none TECHNIQUE/FINDINGS: Prior imaging reviewed and procedure discussed withthe patient. Written informed consent obtained. Multiple images obtainedof the right neck demonstrating cervical lymphadenopathy withheterogeneous 3.4 cm x 3.1 cm x 1.9 cm mass localized for biopsy.Appropriate region of the skin was localized, draped and then preppedsterilely. Under real-time ultrasound guidance both fine-needle and core biopsyperformed. Fine-needle sampling performed followed by multiple 18-gaugecore biopsy samples. Bandage applied over the needle entry site. Specimens: Fine-needle samples placed in CytoLyt after creation ofhistological slides. Core biopsy samples placed into formalin. Flowcytometry sample obtained with a heparinized needle. IMPRESSION: Ultrasound-guided biopsy of right cervical lymphadenopathy. -------- FINAL REPORT -------- Dictated By: Ingrid Barrett Dictated Date: 01/31/2025 10:15 ET Assigned Physician: Ingrid Barrett Reviewed and Electronically Signed By: Ingrid Barrett Signed Date: 01/31/2025 10:58 ET Workstation ID: [id number] Transcribed By: Self Edit Transcribed Date: 01/31/2025 10:15 ET us Parsfatmata Barrett MD IMG US PROCEDURES Final Result * Tissue exam (01/27/2025 4:20 PM EST) Final Diagnosis Right neck, level II, mass, core biopsy: Squamous cell carcinoma, keratinizing - No abnormal p16 staining - No lymph node tissue identified 5:50 PM EST [facility] at 1750 EST Comment This case was reviewed in our intradepartmental conference on 01/29/25. 5:50 PM EST [facility] Gross Description A. Neck, RIGHT NECK MASS, LEVEL II: Labeled neck . Received in formalin are two soft to rubbery, bo-white tissue cores measuring 0.6 x 0.1 cm and 0.7 x 0.1 cm, which are wrapped in paper and submitted in toto in two cassettes, one piece each (one H&E, +10 unstained slides for potential immunohistochemical stains and one H&E), conserving tissue on each block. Two touch preparations are made. TS 5:50 PM EST [facility]) [facility] Intraoperative Consultation A. Neck, RIGHT NECK MASS, LEVEL II: Cytological evaluation of touch preparation of core biopsy: Neoplasm Nicole Parsons MD 01/27/25 Notification sent to Bethany RODAS at 16:54 5:50 PM EST [facility] Disclaimer NOTE: The immunohistochemical tests and in situ hybridization tests were developed and their performance characteristics were determined by [facility]. They have not been cleared or approved by the U.S. Food and Drug Administration. The FDA has determined that such clearance or approval is not necessary. These tests are used for clinical purposes. They should not be regarded as investigational or for research. This laboratory is certified under the Clinical Laboratory Improvement Amendments of 1988 (CLIA) as qualified to perform high complexity clinical laboratory testing. (controls appropriate) Unless otherwise specified, all tissue is 10% NB formalin fixed and paraffin embedded. 5 5:50 PM EST [facility] Lymph Node Neck structure / Unknown 01/27/2025 4:20 PM EST 01/27/2025 4:43 PM EST us Ingrid Barrett MD LAB PATHOLOGY ORDERABLES Final Result [facility] [address] [place] [address], * Fine needle aspiration (01/27/2025 4:17 PM EST) Final Diagnosis Right neck, level II, mass, fine needle aspiration, (direct smears, cell block): Squamous cell carcinoma 01/30/2025 2:35 PM EST [facility] at 1435 EST Specimen A Adequacy Satisfactory for evaluation 01/30/2025 2:35 PM EST [facility] Comment:This is an appended report. These results have been appended to a previously preliminary verified report. Gross Description A. Neck, RIGHT NECK MASS, LEVEL II: Received in saline centrifuged, 15 ml dumped and 15 ml formalin added (gabriela). There is 30 ml of clear fluid. RPMI flow tube is combined with saline solution. One cell block is made, no thinprep per doctor Parsons. Also received are two air dried and two alcohol fixed direct smears. Cell block placed in formalin at 900, total formalin fixation time is 12 hours. hs 01/30/2025 2:35 PM EST [facility] Intraoperative Consultation A. Neck, RIGHT NECK MASS, LEVEL II: Fine needle aspirate: Neoplasm Nicole Parsons MD 01/27/25 Notification sent to Bethany RODAS at 16:54 01/30/2025 2:35 PM EST [facility] Disclaimer Unless otherwise specified, all tissue is 10% NB formalin fixed and paraffin embedded. Technical cytopathology services provided by [facility], at [address] [place] [address] (CLIA # [id number]/Navid Sam MD, Lining Baster.) 01/30/2025 2:35 PM EST [facility] Lymph Node Neck structure / Unknown 01/27/2025 4:17 PM EST 01/27/2025 4:41 PM EST Ingrid Barrett MD LAB PATHOLOGY ORDERABLES Final Result [facility]) [facility] [address] [place] [address], * IR Insert Gastro Tube Perc w Fluoro (01/27/2025 3:57 PM EST) Anatomical Region Laterality Modality Body N/A Interventional R adiology 01/27/2025 5:41 PM EST Impressions 01/27/2025 5:42 PM EST Placement of percutaneous gastrostomy tube. (Gastric anchors should be cut off in approximately 10 days if they do not fall off.) -------- FINAL REPORT -------- Dictated By: Ingrid Barrett Dictated Date: 01/27/2025 17:41 ET Assigned Physician: Ingrid Barrett Reviewed and Electronically Signed By: Ingrid Barrett Signed Date: 01/27/2025 17:42 ET Workstation ID: [id number] Transcribed By: Self Edit Transcribed Date: 01/27/2025 17:41 ET Narrative 01/27/2025 5:42 PM EST INDICATION: Tongue mass with cervical lymphadenopathy, dysphagia, significant weight loss PROCEDURE: Consent obtained for percutaneous gastric tube placement under fluoroscopy and moderate conscious sedation. prior relevant studies: CT scan of the abdomen from January 24, 2025 MEDICATIONS: Local anesthesia: 20 cc of 1% buffered lidocaine administered subcutaneously. Sedation: Moderate intravenous sedation was initiated and maintained for 30 minutes while the patient was independently monitored by the radiology nurse under the supervision of the interventional radiologist. A total of 3 mg of Versed and 100 mcg of fentanyl administered during the procedure. Other: 1 mg of Ancef administered intravenously as a prophylactic antibiotic. 1 mg of glucagon administered prior to insufflation of stomach. Total patient dose (air kerma): 8 mGy TECHNIQUE: Patient placed supine on the angiographic table and left upper quadrant was draped and prepped sterilely. After initiation of conscious sedation a 5 [place] Kumpe catheter was advanced through the nasal passage and fluoroscopically guided down the esophagus into the stomach. Intravenous glucagon administered and stomach was insufflated with air. 3 gastric anchors placed in a triangular configuration. Small dermatotomy performed in the center of the triangle and an 18-gauge singlewall needle was advanced under fluoroscopy into the gastric bubble. Small amount of water-soluble contrast injected confirm placement. Amplatz wire was advanced through the needle into the gastric lumen. Needle was removed and track was dilated up to a 22 [place] peel-away sheath. An 18-gauge gastric tube was then advanced over the wire and into the gastric lumen. Retention balloon insufflated with 20 cc of sterile water. Peel-away sheath and then wire were removed. The catheter was retracted until gentle traction was noted. Water soluble contrast was injected through the catheter to confirm positioning. A sterile dressing was applied. FINDINGS: Fluoroscopic image obtained after gastric placement demonstrates newly positioned gastric tube within the left upper quadrant with 3 adjacent gastric anchors. Water-soluble soluble contrast noted in the fundal portion of the stomach. Procedure Note Ingrid Barrett MD - 01/27/2025 INDICATION: Tongue mass with cervical lymphadenopathy, dysphagia,significant weight loss PROCEDURE: Consent obtained for percutaneous gastric tube placement underfluoroscopy and moderate conscious sedation. prior relevant studies: CT scan of the abdomen from January 24, 2025 MEDICATIONS: Local anesthesia: 20 cc of 1% buffered lidocaine administeredsubcutaneously. Sedation: Moderate intravenous sedation was initiated and maintained for30 minutes while the patient was independently monitored by the radiologynurse under the supervision of the interventional radiologist. A total of3 mg of Versed and 100 mcg of fentanyl administered during the procedure. Other: 1 mg of Ancef administered intravenously as a prophylacticantibiotic. 1 mg of glucagon administered prior to insufflation ofstomach. Total patient dose (air kerma): 8 mGy TECHNIQUE: Patient placed supine on the angiographic table and left upperquadrant was draped and prepped sterilely. After initiation of conscioussedation a 5 [place] Kumpe catheter was advanced through the nasal passageand fluoroscopically guided down the esophagus into the stomach.Intravenous glucagon administered and stomach was insufflated with air. 3gastric anchors placed in a triangular configuration. Small dermatotomyperformed in the center of the triangle and an 18-gauge singlewall needlewas advanced under fluoroscopy into the gastric bubble. Small amount ofwater-soluble contrast injected confirm placement. Amplatz wire wasadvanced through the needle into the gastric lumen. Needle was removed andtrack was dilated up to a 22 Venezuelan peel-away sheath. An 18-gauge gastrictube was then advanced over the wire and into the gastric lumen. Retentionballoon insufflated with 20 cc of sterile water. Peel-away sheath and thenwire were removed. The catheter was retracted until gentle traction was noted. Water soluble contrast was injected through thecatheter to confirm positioning. A sterile dressing was applied. FINDINGS: Fluoroscopic image obtained after gastric placement demonstratesnewly positioned gastric tube within the left upper quadrant with 3adjacent gastric anchors. Water-soluble soluble contrast noted in thefundal portion of the stomach. IMPRESSION: Placement of percutaneous gastrostomy tube. (Gastric anchors should be cutoff in approximately 10 days if they do not fall off.) -------- FINAL REPORT -------- Dictated By: Ingrid Barrett Dictated Date: 01/27/2025 17:41 ET Assigned Physician: Ingrid Barrett Reviewed and Electronically Signed By: Ingrid Barrett Signed Date: 01/27/2025 17:42 ET Workstation ID: [id number] Transcribed By: Self Edit Transcribed Date: 01/27/2025 17:41 ET Ingrid Barrett MD IMG IR PROCEDURES Final Result * Lavender tube (01/27/2025 6:47 AM EST) [facility] Extra Tube Hold for add-ons. 01/27/2025 8:01 AM EST [facility] Comment:Auto resulted. Blood Venous blood specimen / Unknown 01/27/2025 6:47 AM EST 01/27/2025 6:56 AM EST Francisco Milan MD LAB BLOOD ORDERABLES Final Resul t Performing Organization Address [facility] Co de Phone Number [facility] [address] [place] [address], [place] [phone] * Prothrombin time with INR (01/25/2025 6:22 AM EDT) [facility] Protime 11.1 10.6 - 13.9 sec LAB COAGULATION METHOD 01/25/2025 7:17 AM EDT [facility] INR 0.9 LAB COAGULATION METHOD 01/25/2025 7:17 AM EDT [facility] Blood Venous blood specimen / Unknown Venipuncture / Unknown 01/25/2025 6:22 AM EDT 01/25/2025 6:31 AM EDT Rosangela Simon NP LAB BLOOD ORDERABLES Fin al Result Performing Organization Address City/[facility]/ZIP Co de Phone Number [facility] [address] [place] [address], [place] [phone] * (ABNORMAL) Complete blood count (01/25/2025 6:22 AM EDT) [facility] WBC 10.3 4.8 - 10.8 K/mcL LAB HEMETOLOGY METHOD 01/25/2025 6:55 AM [facility] RBC 4.20(L) 4.50 - 5.50 M/mcL LAB HEMETOLOGY METHOD 01/25/2025 6:55 AM [facility] Hemoglobin 14.3 13.5 - 17.5 g/dL LAB HEMETOLOGY METHOD 01/25/2025 6:55 AM [facility] Hematocrit 42.0 42.0 - 54.0 % LAB HEMETOLOGY METHOD 01/25/2025 6:55 AM [facility] MCV 101.0(H) 79.0 - 98.0 FL LAB HEMETOLOGY METHOD 01/25/2025 6:55 AM [facility] MCH 34.4(H) 27.0 - 32.0 pcg LAB HEMETOLOGY METHOD 01/25/2025 6:55 AM [facility] MCHC 34.0 32.0 - 37.0 g/dL LAB HEMETOLOGY METHOD 01/25/2025 6:55 AM [facility] RDW 12.2 11.0 - 15.0 % LAB HEMETOLOGY METHOD 01/25/2025 6:55 AM [facility] Platelets 313 130 - 400 K/mcL LAB HEMETOLOGY METHOD 01/25/2025 6:55 AM [facility] MPV 8.6 7.0 - 11.0 FL LAB HEMETOLOGY METHOD 01/25/2025 6:55 AM [facility] NRBC 0.0 <1.0 % LAB HEMETOLOGY METHOD 01/25/2025 6:55 AM [facility] NRBC Absolute 0.00 <0.10 K/mcL LAB HEMETOLOGY METHOD 01/25/2025 6:55 AM [facility] Blood Venous blood specimen / Unknown Venipuncture / Unknown 01/25/2025 6:22 AM EDT 01/25/2025 6:31 AM EDT us Hyacinth Duffy MD LAB BLOOD ORDERABLES Final Res ult [facility] [address] [place] [address], [place] [phone] * (ABNORMAL) Comprehensive metabolic panel (01/25/2025 6:22 AM EDT) Only the most recent of2 resultswithin the time period is included. Sodium 137 133 - 145 mmol/L LAB CHEMISTRY METHOD 01/25/2025 7:19 AM [facility] Potassium 3.9 3.5 - 5.5 mmol/L LAB CHEMISTRY METHOD 01/25/2025 7:19 AM [facility] Chloride 97 96 - 110 mmol/L LAB CHEMISTRY METHOD 01/25/2025 7:19 AM [facility] CO2 34(H) 21 - 32 mmol/L LAB CHEMISTRY METHOD 01/25/2025 7:19 AM [facility] Anion Gap 6 3 - 11 LAB CHEMISTRY METHOD 01/25/2025 7:19 AM [facility] Glucose 95 70 - 100 mg/dL LAB CHEMISTRY METHOD 01/25/2025 7:19 AM [facility] BUN 8 5 - 25 mg/dL LAB CHEMISTRY METHOD 01/25/2025 7:19 AM [facility] Creatinine 0.45(L) 0.70 - 1.30 mg/dL LAB CHEMISTRY METHOD 01/25/2025 7:19 AM [facility] eGFR 118 >=60 mL/min/1. 73m2 LAB CHEMISTRY METHOD 01/25/2025 7:19 AM [facility] Comment:Calculation based on the Chronic Kidney Disease Epidemiology Collaboration (CKD-EPI) equation refit without adjustment for race. BUN/Creatinine Ratio 17.8 LAB CHEMISTRY METHOD 01/25/2025 7:19 AM [facility] Calcium 9.7 8.5 - 10.5 mg/dL LAB CHEMISTRY METHOD 01/25/2025 7:19 AM [facility] AST (SGOT) 13 10 - 42 unit/L LAB CHEMISTRY METHOD 01/25/2025 7:19 AM [facility] ALT (SGPT) 21 10 - 60 unit/L LAB CHEMISTRY METHOD 01/25/2025 7:19 AM [facility] Alkaline Phosphatase 114 42 - 121 unit/L LAB CHEMISTRY METHOD 01/25/2025 7:19 AM [facility] Total Protein 6.5 6.0 - 8.0 g/dL LAB CHEMISTRY METHOD 01/25/2025 7:19 AM [facility] Albumin 3.3 3.2 - 5.0 g/dL LAB CHEMISTRY METHOD 01/25/2025 7:19 AM [facility] Total Bilirubin 0.6 0.0 - 1.4 mg/dL LAB CHEMISTRY METHOD 01/25/2025 7:19 AM [facility] Blood Venous blood specimen / Unknown Venipuncture / Unknown 01/25/2025 6:22 AM EDT 01/25/2025 6:30 AM EDT us Hyacinth Duffy MD LAB BLOOD ORDERABLES Final Res ult [facility] [address] [place] [address], * CT Chest/Abdomen/Pelvis w Contrast (01/24/2025 7:58 PM EDT) Anatomical Region Laterality Modality Body Computed Tomogra phy 01/24/2025 8:19 PM EDT Impressions 01/24/2025 8:19 PM EDT 1. No acute process. 2. Coronary artery disease. 3. Emphysema. This document has been electronically signed by: Mary Mays MD on 01/24/2025 20:19:27 Narrative 01/24/2025 8:19 PM EDT INDICATION: dysphagia CT chest, abdomen and pelvis with contrast Comparison: None provided Findings: The heart is normal size. Calcification of the coronary vasculature. The visualized thyroid and mediastinum are unremarkable. No evidence of pneumonia or edema. Mild apical predominant emphysema. The gallbladder and solid organs are within normal limits. No renal stones. No bowel obstruction, pneumoperitoneum, or pneumatosis. Pelvic contents unremarkable. Appendix is not seen. The bones are intact. Multilevel disc space narrowing and endplate osteophyte formation, as well as facet hypertrophy. Procedure Note Mary Mays MD - 01/24/2025 INDICATION: dysphagia CT chest, abdomen and pelvis with contrast Comparison: None provided Findings: The heart is normal size. Calcification of the coronary vasculature. The visualized thyroid and mediastinum are unremarkable. No evidence of pneumonia or edema. Mild apical predominant emphysema. The gallbladder and solid organs are within normal limits. No renal stones. No bowel obstruction, pneumoperitoneum, or pneumatosis. Pelvic contents unremarkable. Appendix is not seen. The bones are intact. Multilevel disc space narrowing and endplate osteophyte formation, as well as facet hypertrophy. IMPRESSION: 1. No acute process. 2. Coronary artery disease. 3. Emphysema. This document has been electronically signed by: Mary Mays MD on 01/24/2025 20:19:27 us Rosangela Simon NP IMG CT PROCEDURES Final Result * SST tube (01/24/2025 5:21 PM EDT) Extra Tube Hold for add-ons. 01/24/2025 7:01 PM EDT [facility] Comment:Auto resulted. Blood Venous blood specimen / Unknown 01/24/2025 5:21 PM EDT 01/24/2025 5:41 PM EDT us Hyacinth Duffy MD LAB BLOOD ORDERABLES Final Res ult Performing Organization Address [facility] Co de Phone Number [facility] [address] [place] [address], [place] [phone] * Light blue tube (01/24/2025 5:21 PM EDT) Extra Tube Hold for add-ons. 01/24/2025 7:01 PM EDT [facility] Comment:Auto resulted. Blood Venous blood specimen / Unknown 01/24/2025 5:21 PM EDT 01/24/2025 5:41 PM EDT us Hyacinth Duffy MD LAB BLOOD ORDERABLES Final Res ult Performing Organization Address [facility] Co de Phone Number [facility] [address] [place] [address], [place] [phone] * Ethanol (01/24/2025 5:21 PM EDT) Ethanol Level <3 0 - 10 mg/dL LAB CHEMISTRY METHOD 01/24/2025 7:32 PM EDT [facility] Blood Venous blood specimen / Unknown 01/24/2025 5:21 PM EDT 01/24/2025 5:41 PM EDT Rosangela Simon NP LAB BLOOD ORDERABLES Fin al Result Performing Organization Address [facility]/ZIP Co de Phone Number [facility] [address] [place] [address], [place] [phone] from Last [address] [place] [address] [place] [address] Advance Directives Documents on File Type Date Recorded Patient Bearingizer Expl anation Advance Directives and Living Will 01/27/2025 10:10 AM [facility] Pro xy * Full Code - Confirmed (Latest Code Status on File) Date Activated Date Inactivated Comments 01/24/2025 3:35 PM 01/30/2025 1:38 PM This code s tatus was ascertained in the following way: Code status discussion: discussion with patient To update the patient's code status, place a code status order. Do not modify or discontinue any currently active code status orders. * Full Code - Default Date Activated Date Inactivated Comments 01/24/2025 2:28 PM 01/24/2025 3:35 PM This is or amber is used when code status has not been discussed with the patient, or code status is otherwise unknown/unconfirmed To update the patient's code status, place a code status order. Do not modify or discontinue any currently active code status orders. Healthcare Agents on File Name Relationship Healthcare Agent [facility] Communication [facility] Sister Health Care Agent Mikayla Grimaldo Relative [facility] Ca re Agent Care Teams Clothes Presser Relationship Specialty Start Date End Date Cj Torres MD [facility] Cher [facility] [address] [place] [id number] PCP - General Family Medicine 01/27/25
--- OUTSIDE RECORDS SUMMARY | 2025-02-21 16:19 | XMS_ITS | Data Portability ---
Author Organization [place] - [facility], Allergy Address [address] [address] Care Team Providers Care Fagot Heater Name Role Phone STEPHEN SCHWARTZ Primary Care [...] consu lts No observ ation record ed. [facility] [address], [place], [address], 02/07/2025 17:05:00 01/25/2001/24/2025 consu lts No observ ation record ed. [facility]/S Dept [address] [place], [address], 02/07/2025 17:05:00 01/25/2001/24/2025 consu lts No observ ation record ed. [facility] [address] [place], [address], 02/07/2025 17:05:00 01/25/2001/24/2025 H&P No observ ation record ed. [facility] [address] [place], [address], 02/07/2025 11:29:49 01/27/2001/24/2025 consu lts No observ ation record ed. [facility] [address] [place], [address], 02/07/2025 11:29:23 01/28/2001/24/2025 consu lts No observ ation record ed. [facility] [address] [place], [address], 02/07/2025 11:28:10 01/28/2001/24/2025 consu lts No observ ation record ed. [facility] [address] [place], [address], 02/07/2025 11:27:19 01/29/2001/24/2025 consu lts No observ ation record ed. [facility]/S Dept [address] [place], [address], 02/07/2025 11:27:02 01/31/2001/24/2025 dis[address]an [address] [address] No observ ation record ed. [email or web address] [facility] U/S Dept [address] [place], [address], 02/11/2025 14:47:32 02/19/20 audio gram No observ ation record ed. BARCODE Not Available 2024 17:11:37 Result Notes None recorded. Problems Name Problem SNOMED Code Status Onset Date Resolution Date Notes Provider Name and Address Organization Details Recorded Time Sensorineural hearing loss of bilateral ears [id number] Active 2024 DENISE MONCADA, [facility] [address] [facility],[address], [address], [facility] 14:52:29 Problem Notes None recorded. Procedures Surgical History Date Name Laterality Status Provider Name and Address Organization Details Recorded Time 02/19/20 Comp Audio with Tymps & Reflexes - 54944 & 67007 completed DENISECHELLE MONCADA, [facility] [address] [facility],[place] [address], [place], [address], [facility] 02/18/2025 14:51:52 02/19/20 OAE distortion product, comprehensive - 52014 completed [employer]EREK, [facility] [address] [facility],[address], [address], [facility] 02/18/2025 14:42:22 Imaging Results None recorded. [...] ICD10 Code Diagnosis IMO Codes Diagnosis Note [id number] [address] [facility] [address] [address] 02/18/2025 14:15:54 02/18/2025 15:00:38 Sensorineural hearing loss of bilateral ears [id number] H90.3 [id number] Audiologic al evaluation results: Normal auditory thresholds [...] by Organization Details LastModified Time None Recorded Advance Directives Directive None Recorded Payers Insurance Date Sequence Insurance Name Policy Number Policy Valladares Covered Member ID Valladares Member ID Guarantor Name 02/18/[address] [place] [address] [id number] Corneluis Manjarrez [id number] Cornelius Manjarrez Notes Date Note Type Note Provider Name and Address Organization Details Recorded Time 02/18/2025 text/html Audiological Evaluation HPIReported by PatientHearing LossFor hearing loss perceived, patient reportsnone (no loss of audibility). Baseline for ototoxic monitoring before treatment DAYRON HERRERA [address] [facility],[place] [address], [place], [address], [facility] 02/18/2025 14:56:09
--- OUTSIDE RECORDS SUMMARY | 2025-02-21 16:19 | XMS_ITS | Patient Health Record ---
Author Organization [facility] Elaine maryanne Vern Address [address] [place] [address] Care Team Providers Care Aerial Installer Name Role Phone Antoni Braun MD Primary Care Provider Unavailab Basim Diaz Unavailable [phone] Reason For Referral No Information Medications Medication [...] W/U Status Risk Notes Problem Plantar wart (30993201) Plantar wart (B07.0) Active confirmed Problem Localized, primary osteoarthritis of the ankle and/or foot (693626302) Primary osteoarthrit is, right ankle and foot (M19.071) Active confirmed Plan Of Treatment No Information Insurance Providers Payer Name Payer Address Payer Phone Subscriber Number Group Number Insured Name Patient Relationship to Insured Coverage Start Date Coverage End Date [facility] [id number] [place] [id number] Cornelius Manjarrez Self - patient is the insured Medical (General) History Medical History History ICD Code transfusions mumps measles joint implants/screws chicken pox Broken bones Diverticulosis High blood pressure Surgical History Surgery Date(Month/Year) shoulder surgery 1977 Diverticulitis 2011 Hospitalization History Reason Date(Month/Year) diverticulitis X2 2011 reversal diverticulitis 2011
[2025-02-21 17:08] VITALS: BP 133/75; PULSE 89; RESP 17; TEMP 36.9; O2SAT 98
[2025-02-21 17:12] VITALS: BP 133/75; PULSE 89; RESP 17; TEMP 36.9; O2SAT 98
== END 2025-02-21 17:12 | disposition home or self-care (01) ==
PROVIDERS: Emergency Provider Student in an Organized Health Care Education/Training Program; PCP Family Medicine
DX: K94.23 Gastrostomy malfunction (principal)
CPT/HCPCS: 99284